=== PATIENT | female | born 1965 | race Caucasian/White ===

== ENCOUNTER 2019-09-07 07:32 | Day surgery (SDC) | payer BC ==
[2019-09-06 14:14] VITALS: BMI 21.9
[~2019-09-07 07:32] MED LIST: Cyclopentolate 1% Opth Drop 2 ML BOT R EYE SCH; Fentanyl 100 MCG/2 ML VIAL ONE; Fluorouracil 100 MG, Enoxaparin Sodium 25 MG, EPINEPHrine 0.3 MG in Ophthalmic Irrigati... IRR SCH; Midazolam HCl 2 mg/2 ml Vial ONE; Phenylephrine 2.5% Ophth Soln 5 ML BOT R EYE SCH
[2019-09-07] MEDS ORDERED: Cyclopentolate 1% Opth Drop 2 ML BOT ONE (08:00)
[2019-09-07] MEDS ORDERED: Phenylephrine 2.5% Ophth Soln 5 ML BOT ONE (08:00)
[2019-09-07] MEDS ORDERED: Midazolam HCl 2 mg/2 ml Vial ONE (08:31)
[2019-09-07] MEDS ORDERED: Indocyanine Green 25 MG/10 ML VIAL ONE (13:44)
[2019-09-07] MEDS ORDERED: Metoclopramide HCl 10 MG/2 ML VIAL ONE (13:44)
[2019-09-07] MEDS ORDERED: PROPOFOL 200 MG/20 ML VIAL ONE (13:44)
[2019-09-07] MEDS ORDERED: Dexamethasone 20 MG/5 ML VIAL ONE (13:44)
[2019-09-07] MEDS ORDERED: Lidocaine 4% PF 5 ML AMP ONE (13:44)
[2019-09-07] MEDS ORDERED: Maxitrol 0.1% Opth Oint 3.5 GM TUBE ONE (13:44)
[2019-09-07] MEDS ORDERED: Triamcinolone 40 MG/ML VIAL ONE (13:44)
[2019-09-07] MEDS ORDERED: Ondansetron PF 4 MG/2 ML Vial ONE (13:44)
[2019-09-07] MEDS ORDERED: Bupivacaine PF 0.75% SDV 10 ML ONE (13:44)
[2019-09-07] MEDS ORDERED: Lidocaine 1% PF 5 ML VIAL ONE ×2 (13:44)
--- NOTE | 2019-09-07 16:12 | OP ---
DATE OF PROCEDURE: 09/07/2019 PREOPERATIVE DIAGNOSIS: Tractional retinal detachment, right eye. POSTOPERATIVE DIAGNOSIS: Tractional retinal detachment, right eye. PROCEDURE PERFORMED: Pars plana vitrectomy with tractional retinal detachment repair, right eye. ANESTHESIA: General endotracheal anesthesia. COMPLICATIONS: None. PROCEDURE IN DETAIL: The patient was identified in the preoperative holding area. Appropriate informed consent for the planned surgical procedure on the right eye had been obtained. The patient was transported to the operative suite. Appropriate cardiopulmonary monitoring was established. General endotracheal anesthesia was initiated. Local anesthesia was obtained with retrobulbar block. The patient was prepped and draped in the usual sterile manner for ophthalmic surgery in the right eye. Lid speculum was placed in the right eye. A 25-gauge trocar was placed conjunctiva and sclera superotemporally, inferotemporally, supranasally. Infusion line was placed inferotemporally. Light pipe vitreous cutter was inserted to the eye. Core vitrectomy was performed. Indocyanine green dye was infused on the posterior pole x2, identifying epiretinal membrane and the internal limiting membrane. These were peeled across the macula in multiple fragments. Complete air-fluid exchange was performed with 10 minutes being allowed to drain posteriorly, 28% sulfur hexafluoride gas was infused in the eye. Superior sclerotomy was suture closed with 6-0 plain gut suture. Retrobulbar Kenalog and subconjunctival Ancef were placed. Antibiotic ointment placed. Eye was patched and shield. The patient was taken to postoperative recovery unit in good condition having suffered no immediate perioperative complications. The patient was instructed to avoid flat on back positioning. Followup appointment with Dr. Balbuena. Job ID: [id number]
== END 2019-09-07 12:40 | disposition home or self-care (01) ==
LOC: SDC 07:32
PROVIDERS: ATTEND Ophthalmology Retina Specialist
PROC: 08T43ZZ Resection of Right Vitreous, Percutaneous Approach (ICD-10-PCS; principal; 2019-09-07)
DX: H33.41 Traction detachment of retina, right eye (principal); E78.5 Hyperlipidemia, unspecified; G47.33 Obstructive sleep apnea (adult) (pediatric); G43.909 Migraine, unspecified, not intractable, without status migrainosus; E03.9 Hypothyroidism, unspecified; Z79.899 Other long term (current) drug therapy
CPT/HCPCS: 67025; J0171; J1100; J1650; J2001; J2250; J2405; J2704; J2765; J3010; J3301; J3490; J9190